=== PATIENT | female | born 1970 | race Caucasian/White ===

== ENCOUNTER 2020-02-04 13:44 | Emergency (ER) | payer OTHER ==
--- NOTE | 2020-02-04 14:11 | EDM.PDOC ---
ED HPI GENERAL MEDICAL PROBLEM - General Chief Complaint: Lower Extremity Injury/Pain Stated Complaint: BROKEN LEG BROKEN TIBIA Time Seen by Provider: 02/04/20 13:53 Source of Information: Reports: Patient History Limitations: Reports: No Limitations - History of Present Illness INITIAL COMMENTS - FREE TEXT/NARRATIVE: Patient is a 49-year-old female who had a previous tibia fracture presents today with left knee pain. Patient that she was using crutches in the bathroom when she slipped on a puddle of water under her left knee. Patient now has increased pain to the left leg. Patient denies any other injuries denies any head any LOC. Left Knee Pain Score (Numeric/FACES): 9 - Related Data Allergies Allergy/AdvReac Type Severity Reaction Status Date / Time No Known Allergies Allergy Verified 02/04/20 13:55 Home Meds: Home Meds Losartan [Cozaar] 25 mg PO DAILY 02/04/20 [History] Sertraline [Zoloft] 25 mg PO DAILY 02/04/20 [History] hydrOXYzine HCL [hydrOXYzine] 25 mg PO DAILY 02/04/20 [History] Past Medical History HEENT History: Reports: None Cardiovascular History: Reports: Hypertension Respiratory History: Reports: None Gastrointestinal History: Reports: None Genitourinary History: Reports: None [employer] ASSISTANT History: Reports: Musculoskeletal History: Reports: Fracture Other Musculoskeletal History: Left tibia fx Neurological History: Reports: None Psychiatric History: Reports: Anxiety, Depression Endocrine/Metabolic History: Reports: None Hematologic History: Reports: None Oncologic (Cancer) History: Reports: None Dermatologic History: Reports: None - Infectious Disease History Infectious Disease History: Reports: Chicken Pox Social & Family History - Tobacco Use Tobacco Use Status *Q: Never Tobacco User - Caffeine Use Caffeine Use: Reports: Coffee, Energy Drinks - Recreational Drug Use Recreational Drug Use: No Review of Systems - Review of Systems Review Of Systems: See Below Constitutional: Reports: No Symptoms Eyes: Reports: No Symptoms Ears: Reports: No Symptoms Nose: Reports: No Symptoms Mouth/Throat: Reports: No Symptoms Respiratory: Reports: No Symptoms Cardiovascular: Reports: No Symptoms GI/Abdominal: Reports: No Symptoms Genitourinary: Reports: No Symptoms Musculoskeletal: Reports: Leg Pain Skin: Reports: No Symptoms Neurological: Reports: No Symptoms Psychiatric: Reports: No Symptoms ED EXAM, GENERAL - Physical Exam Exam: See Below Exam Limited By: No Limitations General Appearance: Alert, No Apparent Distress Respiratory/Chest: No Respiratory Distress Cardiovascular: Normal Peripheral Pulses Peripheral Pulses: 2+: Popliteal (L), Popliteal (R) Extremities: Normal Inspection, Normal Range of Motion, Leg Pain. No: Joint Swelling Neurological: Alert, Oriented, Normal Cognition Course - Vital Signs Last Recorded V/S: Last Vital Signs Temp 98.1 F 02/04/20 13:56 Pulse 85 02/04/20 13:56 Resp 20 02/04/20 13:56 BP 170/98 H 02/04/20 13:56 Pulse Ox 97 02/04/20 13:56 - Re-Assessments/Exams Free Text/Narrative Re-Assessment/Exam: 02/04/20 15:20 xray is negative. Patient pain control. Patient will discharge home and can use crutches as she is been using for her fracture ankle. Since stated previously that her tibia was fractured however on x-rays today as her ankle which she agreed that was her ankle that she is already scheduled for to have surgery on Thursday. Departure - Departure Time of Disposition: 15:21 Disposition: Home, Self-Care 01 Condition: Good Clinical Impression: Knee sprain - Discharge Information *PRESCRIPTION DRUG MONITORING PROGRAM REVIEWED*: Not Applicable *COPY OF PRESCRIPTION DRUG MONITORING REPORT IN PATIENT ABHIJIT: Not Applicable Instructions: Knee Sprain, Adult, [id number] Referrals: PCP,None [Primary Care Provider] - Forms: ED Department Discharge Additional Instructions: The following information is given to patients seen in the emergency department who are being discharged to home. This information is to outline your options for follow-up care. We provide all patients seen in our emergency department with a follow-up referral. The need for follow-up, as well as the timing and circumstances, are variable depending upon the specifics of your emergency department visit. If you don't have a primary care physician on staff, we will provide you with a referral. We always advise you to contact your personal physician following an emergency department visit to inform them of the circumstance of the visit and for follow-up with them and/or the need for any referrals to a consulting specialist. The emergency department will also refer you to a specialist when appropriate. This referral assures that you have the opportunity for follow-up care with a specialist. All of these measure are taken in an effort to provide you with optimal care, which includes your follow-up. Under all circumstances we always encourage you to contact your private physician who remains a resource for coordinating your care. When calling for follow-up care, please make the office aware that this follow-up is from your recent emergency room visit. If for any reason you are refused follow-up, please contact the [facility] Emergency Department at and asked to speak to the emergency department charge nurse. Please follow up with your primary care physician. If you do not have a primary care physician, see below: [facility] [address] [place] [id number] [facility] [address] [place] [address] Please follow with your primary care physician. If you have any increased pain inability ambulate with crutches please return to the ED. Sepsis Event Note (ED) - Evaluation Sepsis Screening Result: No Definite Risk - Focused Exam Vital Signs: Vital Signs Temp Pulse Resp BP Pulse Ox 02/04/20 13:56 98.1 F 85 20 170/98 H 97 - Assessment/Plan Plan: Patient is a 49-year-old female who presents today for left knee pain. She slipped while a bath letter her left knee. Patient also had a previous tibia fracture will obtain x-ray of the knee and tibia fracture and reassess.
--- NOTE | 2020-02-04 15:05 | CR ---
TECHNIQUE Left knee radiographs, 3 views. Left tibia/fibula radiographs, 2 views. INDICATION Trauma. COMPARISON None available. FINDINGS Left knee: No dislocation or acute fracture. Joint spaces are preserved. No joint effusion. Soft tissues unremarkable. - Left tibia/fibula: No dislocation. Distal fibula minimally displaced oblique lateral malleolus fracture. Additional small ossified density along the inferior aspect of the lateral malleolus, age-indeterminate. Tiny minimally displaced medial malleolar fracture fragment. Tibiotalar joint space appears grossly maintained. Soft tissue swelling about the ankle. IMPRESSION 1. Minimally displaced bimalleolar left ankle fractures. Consider further evaluation with dedicated left ankle radiographs. 2. Negative left knee radiographs. Dictated by: Darryl Mckinney MD @ 02/04/2020 15:04:44 (Electronically Signed)
--- NOTE | 2020-02-04 15:05 | CR ---
TECHNIQUE: Left knee radiographs, 3 views. Left tibia/fibula radiographs, 2 views. INDICATION: Trauma. COMPARISON: None available. FINDINGS: Left knee: No dislocation or acute fracture. Joint spaces are preserved. No joint effusion. Soft tissues unremarkable. - Left tibia/fibula: No dislocation. Distal fibula minimally displaced oblique lateral malleolus fracture. Additional small ossified density along the inferior aspect of the lateral malleolus, age-indeterminate. Tiny minimally displaced medial malleolar fracture fragment. Tibiotalar joint space appears grossly maintained. Soft tissue swelling about the ankle. IMPRESSION: 1. Minimally displaced bimalleolar left ankle fractures. Consider further evaluation with dedicated left ankle radiographs. 2. Negative left knee radiographs. Dictated by Darryl Mckinney MD @ 02/04/2020 3:03:48 PM Dictated by: Darryl Mckinney MD @ 02/04/2020 15:04:06 (Electronically Signed)
== END 2020-02-04 15:35 | disposition home or self-care (01) ==
LOC: MW.ED 13:44
DX: S83.92XA Sprain of unspecified site of left knee, initial encounter (principal); I10 Essential (primary) hypertension; F41.9 Anxiety disorder, unspecified; F32.9 Major depressive disorder, single episode, unspecified; Z79.899 Other long term (current) drug therapy; W01.0XXA Fall on same level from slipping, tripping and stumbling without subsequent striking against object, initial encounter; Y93.01 Activity, walking, marching and hiking; Y92.002 Bathroom of unspecified non-institutional (private) residence as the place of occurrence of the external cause
CPT/HCPCS: 73562-26-LT; 73562-LT; 73590-26-LT; 73590-LT; 99282; 99283-25